=== PATIENT | female | born 1985 | race Hispanic/Latino ===

== ENCOUNTER 2016-03-04 08:06 | Emergency (ER) | payer SELFPAY ==
[2016-03-04] MEDS ORDERED: Ondansetron HCl/PF 4 MG/2 ML Vial ONE ×2 (08:36→09:11)
[2016-03-04] MEDS ORDERED: Ketorolac Tromethamine 30 MG/ML VIAL ONE (08:36)
[2016-03-04 08:41] LABS: #Basophils 0.1 thou/uL (0.0-0.2); #Eosinphils 0.1 thou/uL (0.0-0.7); #Lymphocytes 2.6 thou/uL (1.20-3.40); #Monocytes 0.6 thou/uL (0.11-0.59); #Neutrophils 8.9 thou/uL (1.40-6.50); %Eosinophils 0.8 % (0.0-10.0); %Monocytes 4.7 % (0.0-10.0); Hematocrit 40.3 % (36.0-47.0); Mean Platelet Volume 6.2 fL (7.4-10.4); Red Blood Cell (RBC) Count 4.27 mill/uL (4.20-5.40); White Blood Cell (WBC) Count 12.3 thou/uL (4.8-10.8)
[2016-03-04 08:53] LABS: ALT (SGPT) 21 U/L (0-55); AST (SGOT) 12 U/L (5-34); Alkaline Phosphatase 107 U/L (40-150); Anion Gap 11 mmol/L (10-20); BUN (Urea Nitrogen) 16 mg/dL (7.0-18.7); Bilirubin, Total 0.2 mg/dL (0.2-1.2); Calc. Creatinine Clearance 0 mL/min (70-130); Carbon Dioxide 22 mmol/L (22-29); Chloride 108 mmol/L (98-107); Estimated GFR-MDRD 90; Globulin 3.4 g/dL (2.4-3.5); Protein, Total 7.5 g/dL (6.0-8.3)
[2016-03-04] MEDS ORDERED: Piperacillin/Tazobactam 3.375 GM VIAL ONE (09:07)
[2016-03-04] MEDS ORDERED: Sodium Chloride 0.9% 100 ML ONE (09:07)
[2016-03-04 09:23] LABS: Bilirubin Negative (Negative); Blood, Urine Small (Negative); Glucose, Urine (Dipstick) Negative (Negative); Ketone, Urine Negative (Negative); Nitrite Negative (Negative); Protein, Urine (Dipstick) Trace mg/dL (Neg-Trace); Urobilinogen 0.2 mg/dL (0.2-1.0)
[2016-03-04 09:24] LABS: Bacteria/HPF 1+ HPF (None Seen); RBC/HPF 0-3 HPF (0-3)
--- NOTE | 2016-03-04 09:55 | ERRECORD ---
[facility] EMERGENCY RECORD HPI ABDOMINAL PAIN (08:34 WMEI) CHIEF COMPLAINTS: Patient presents for evaluation of abdominal pain. HISTORIAN: History provided by patient, AWAKENED FROM SLEEP THIS AM WITH RUQ PAIN NAUSEA HAS HAD PREVIOUS SYMPTOMS BUT NOT BAS NEVER DX WITH GB DZ. LOCATION FEMALE: Symptoms are localized, most severe in the right upper quadrant, Radiation, to the back, SUBSCAPULAR. QUALITY: Described as similar to previous episodes. TIME COURSE: Sudden onset of symptoms. ASSOCIATED WITH FEMALE: Associated with nausea, No associated urinary tract infection signs or symptoms. RELIEVED BY: Patient's condition relieved by nothing. EXACERBATED BY: Patient's condition exacerbated by nothing. ROS (08:37 WMEI) CONSTITUTIONAL: Historian denies chills, denies fever. EYES: Historian denies eye pain, denies eye discharge. ENT: Historian denies otalgia, denies rhinorrhea, denies sore throat. CARDIOVASCULAR: Historian denies chest pain, no radiation. RESPIRATORY: Historian denies cough, denies shortness of breath. GI: Historian reports abdominal pain, denies diarrhea, reports nausea, denies vomiting. GENITOURINARY FEMALE: Historian denies dysuria, denies urgency. MUSCULOSKELETAL: Historian denies arthralgias, denies joint swelling. SKIN: Historian denies skin changes, denies skin lesions. NEUROLOGIC: Historian denies confusion, denies mental status changes. PSYCHIATRIC: Historian denies alcohol abuse, denies drug abuse. PAST MEDICAL HISTORY (08:17 SDIS) MEDICAL HISTORY: No past medical history, Flu vaccine not up to date, Tetanus not up to date. FEMALE SURGICAL HISTORY: Surgical history of tonsillectomy, Surgical history of tubal ligation. PSYCHIATRIC HISTORY: Psychiatric history includes, anxiety, depression. SOCIAL HISTORY: Patient denies alcohol use, Patient denies drug use, Patient has no smoking history. KNOWN ALLERGIES codeine phosphate CURRENT MEDICATIONS (08:16 SDIS) None VITAL SIGNS VITAL SIGNS: Resp: 18 (Non-Labored), Time: 03/04/2016 08:12. &a-1R&a+25V*p+0X*f0302A*c202B*c15G*c2P*p-0X&a-25V&a+1R Name: Domenica Velasco : 1985 F31 MedRec: [id number] AcctNum: [id number] Prepared: MonMar 04, 2016 09:53 by Interface Page 1 of 3 pMD [facility] EMERGENCY RECORD (08:12 SDIS) BP: 152/100, Pulse: 97, Temp: 97.7 (Oral), Pain: 8, O2 sat: 100 on Room Air, Time: 03/04/2016 08:16. (08:16 SDIS) BP: 145/94, Pulse: 83, O2 sat: 99 on Room Air, Time: 03/04/2016 08:35. (08:35 SDIS) BP: 129/83, Pulse: 83, Resp: 18, Temp: 98.2 (Oral), Pain: 2, O2 sat: 100 on Room Air, Time: 03/04/2016 09:28. (09:28 SDIS) PHYSICAL EXAM CONSTITUTIONAL: Vital Signs Reviewed, Patient appears, Patient alert and oriented to person, place and time. (08:38 WMEI) Vital Signs Reviewed, Patient afebrile, Pulse normal, Blood pressure, hypertensive, Respiratory rate normal, Patient appears non toxic, Patient appears, in mild pain distress, Patient alert and oriented to person, place and time, Nursing notes reviewed. (08:55 MBRI) HEAD: Head exam included findings of head atraumatic, normocephalic. (08:38 WMEI) EYES: Conjunctiva normal, Sclera normal. (08:38 WMEI) ENT: Ear exam normal, Nose exam normal, Pharynx exam normal. (08:38 WMEI) NECK: Neck exam included findings of normal range of motion, Trachea midline. (08:38 WMEI) RESPIRATORY CHEST: Breath sounds clear, Chest exam included findings of chest movement symmetrical. (08:38 WMEI) CARDIOVASCULAR: Cardiovascular exam included findings of heart rate regular rate and rhythm, Heart sounds normal. (08:38 WMEI) ABDOMEN FEMALE: Abdominal exam included findings of abdomen tender, to the right upper quadrant, mild intensity, no distension, no mass. (08:38 WMEI) BACK: Back exam included findings of normal inspection, range of motion normal, no tenderness, Costovertebral angle tenderness, on the right. (08:38 WMEI) UPPER EXTREMITY: Upper extremity exam included findings of inspection normal, Range of motion normal, Motor strength normal. (08:38 WMEI) LOWER EXTREMITY: Lower extremity exam included findings of inspection normal, Range of motion normal, Motor strength normal. (08:38 WMEI) NEURO: Lalitha coma scale 15, Neuro exam findings include patient oriented to person, place and time, Speech normal, Gait normal. (08:38 WMEI) SKIN: Skin exam included findings of skin warm, dry, and normal in color. (08:38 WMEI) LYMPHATIC: Lymphatic exam normal. (08:38 WMEI) PSYCHIATRIC: Psychiatric exam included findings of patient oriented to person place and time, Normal affect, Judgment normal, Insight normal. (08:38 WMEI) MEDICATION ADMINISTRATION SUMMARY &a-1R&a+25V*p+0X*[id number]*c202B*c15G*c2P*p-0X&a-25V&a+1R Name: Domenica Velasco : 1985 F31 MedRec: [id number] AcctNum: [id number] Prepared: MonMar 04, 2016 09:53 by Interface Page 2 of 3 pMD [facility] EMERGENCY RECORD Drug Name: Zosyn, Dose Ordered: 3.375 g, Route: IV Piggy Back, Status: Given, Time: 09:21 03/04/2016, Drug Name: ondansetron HCl intravenous, Dose Ordered: 4 mg, Route: IV Push, Status: Given, Time: 09:19 03/04/2016, Drug Name: sodium chloride 0.9 % intravenous, Dose Ordered: 1 L, Route: IV Fluid Infusion, Status: Given, Time: 09:18 03/04/2016, Drug Name: ketorolac injection, Dose Ordered: 30 mg, Route: IV Push, Status: Given, Time: 08:40 03/04/2016, Drug Name: ondansetron HCl intravenous, Dose Ordered: 4 mg, Route: IV Push, Status: Given, Time: 08:38 03/04/2016, Detailed record available in Medication Service section. DOCTOR NOTES RE-EVALUATION: Routine re-evaluation, after administration of analgesics, The patient's condition has improved, discussed with Dr Espino, accepted for further care. Pt stable for ground EMS. Abx given and pt has remained NPO. (09:19 MBRI) PATIENT PLAN: The patient requires a transfer and will be transferred, per physician request, due to availability of specialty care, Transfer form completed, Certificate completed. (09:18 MBRI) PROBLEM LIST No recorded problems DIAGNOSIS (09:22 MBRI) FINAL: PRIMARY: ACUTE CHOLECYSTITIS. PRESCRIPTION No recorded prescriptions DISPOSITION PATIENT: Disposition Type: Transfer, Disposition: Transfer to [facility], Condition: Fair. (09:22 MBRI) Patient left the department. (09:50 SDIS) Smith: MBRI=DO Jean Matthew SDIS=DANITA Gipson, Lakshmi WMEI=DO Awan William &a-1R&a+25V*p+0X*[id number]*c202B*c15G*c2P*p-0X&a-25V&a+1R Name: Rod Domenica Meeta : 1985 F31 MedRec: [id number] AcctNum: [id number] Prepared: MonMar 04, 2016 09:53 by Interface Page 3 of 3 pMD MTDD
--- NOTE | 2016-03-04 10:02 | PICIS ---
[facility] EMERGENCY RECORD TRIAGE (08:12 SDIS) TRIAGE NOTES: SINCE 329. REPORTS PAIN "FROM UP UNDER RIBS, RADIATING TO BACK." REPORTS + N/V. (08:12 SDIS) PATIENT: NAME: Domenica Velasco, AGE: 31, GENDER: female, : Mon1985, TIME OF GREET: MonMar 04, 2016 08:07, PREFERRED LANGUAGE: Macedonian, ETHNICITY: or , ECODE BILLING MAP: [facility], SSN: [id number], Zip Code: [address], KG WEIGHT: 61.23 (est.), PHONE: , , , PERSON ID: [id number], PAYMENT: SJX Self Pay, PCP: Jeane James, /Rufina. (08:12 SDIS) COMPLAINT: R FLANK PAIN. (08:12 SDIS) ADMISSION: URGENCY: 3 Urgent, ADMISSION SOURCE: Home, TRANSPORT: Walk-in, BED: ER -02. (08:12 SDIS) SIRS SCORING: Heart Rate 55-109 (0), Temp range 96.8-101.1 (0), respiratory rate 12-24 (0), Mental Status altered: no (0). (08:17 SDIS) TRIAGE SCREENING: Patient denies suicidal ideation, Patient denies presence of domestic violence. (08:17 SDIS) LMP: Last menstrual period: 02/09/2016. (08:17 SDIS) TREATMENTS IN PROGRESS: Treatments given Prehospital: NONE. (08:17 SDIS) PROVIDERS: TRIAGE NURSE: Lakshmi Gipson RN. (08:12 SDIS) VITAL SIGNS: Resp 18, (Non-Labored), Time 03/04/2016 08:12. (08:12 SDIS) BP 152/100, Pulse 97, Temp 97.7, (Oral), Pain 8, O2 Sat 100, on Room Air, Time 03/04/2016 08:16. (08:16 SDIS) PREVIOUS VISIT ALLERGIES: No Known Drug Allergies. (08:12 SDIS) No Known Drug Allergies. (08:17 SDIS) KNOWN ALLERGIES codeine phosphate CURRENT MEDICATIONS (08:16 SDIS) None VITAL SIGNS VITAL SIGNS: Resp: 18 (Non-Labored), Time: 03/04/2016 08:12. (08:12 SDIS) BP: 152/100, Pulse: 97, Temp: 97.7 (Oral), Pain: 8, O2 sat: 100 on Room Air, Time: 03/04/2016 08:16. (08:16 SDIS) BP: 145/94, Pulse: 83, O2 sat: 99 on Room Air, Time: 03/04/2016 08:35. (08:35 SDIS) BP: 129/83, Pulse: 83, Resp: 18, Temp: 98.2 (Oral), Pain: 2, O2 sat: 100 on Room Air, Time: 03/04/2016 09:28. (09:28 SDIS) NURSING ASSESSMENT: ABDOMEN (08:31 SDIS) CONSTITUTIONAL: Patient arrives ambulatory, Gait steady, History obtained from patient, Patient appears, uncomfortable, Patient cooperative, Patient alert, Oriented to person, place and time, Skin warm, Skin dry, Skin normal in color, Mucous membranes &a-1R&a+25V*p+0X*t3628U*c202B*c15G*c2P*p-0X&a-25V&a+1R Name: Domenica Velasco : 1985 F31 MedRec: [id number] AcctNum: [id number] Prepared: MonMar 04, 2016 09:59 by Interface Page 1 of 11 pMD [facility] EMERGENCY RECORD pink, Mucous membranes moist, Patient complains of R FLANK/RUQ PAIN, ONSET 0330, WOKE HER UP FROM HER SLEEP. REPORTS H/O SIMILAR EPISODES. REPORTS + N/V. DENIES DYSURIA OR HEMATURIA. WORSE WITH MOVEMENT/LIFTING, PT REPORTS. + GARCIA'S SIGN, + CVA TENDERNESS. PAIN: to the right upper quadrant, to the right flank, TO R MIDDLE BACK, on a scale 0-10 patient rates pain as 8. ABDOMEN: Abdomen assessment findings include abdomen symmetrical, Abdomen soft, tender, to the right upper quadrant, to the right flank, Associated with nausea, Associated with vomiting, history of vomiting. LMP: First day last menstrual period, Last period started on 02/09/2016 08:33. GENITOURINARY FEMALE: no associated urinary complaints. NURSING ASSESSMENT: FALL RISK (08:48 SDIS) FALL RISK: Fall risk assessment findings include: no history of falls (0), No bed rest greater than 2 days (0), No use of level of consciousness altering agents with mentation or cognitive changes (0), No change in blood pressure (0), No sensory deficits (0), No impaired mobility (0), No neurologic diagnosis (0), No elimination problems (0), No confusion (0), Total score 0, No risk for fall. NURSING ASSESSMENT: SKIN (09:23 SDIS) SKIN: Skin assessment findings include skin warm, Skin dry, Skin normal in color, Notes: SKIN CDI. NURSING PROCEDURE: BEDSIDE SIRS TESTING (08:57 SDIS) SCORES: Heart Rate 55-109 (0), Temp range 96.8-101.1 (0), respiratory rate 12-24 (0), Latest WBC 3-14.9 (0), Mental Status altered: no (0), Total SIRS Score 0. NURSING PROCEDURE: IV (08:15 SDIS) IV SITE 1: IV established, to the left antecubital, using an 18 gauge catheter, in one attempt, IV site prepped with CHLOROPREP, Saline lock established, Labs drawn at time of placement, labeled in the presence of the patient and sent to lab. SAFETY: Side rails up, Cart/Stretcher in lowest position, Call light within reach, Hospital ID band on. NURSING PROCEDURE: TRANSFER (09:29 SDIS) TRANSFER: Reason for transfer need for specialized care, Diagnosis: CHOLECYSTITIS, Accepting institution: [facility], Accepting physician: ELICIA, Referring physician: MARIO, Transported by urgent ambulance, accompanied by emergency medical services personnel, Report called to receiving facility, [facility], Provided opportunity to answer questions, Bed assigned ER-ER, Copy of patient record prepared for receiving facility, Status of patient's &a-1R&a+25V*p+0X*o2905B*c202B*c15G*c2P*p-0X&a-25V&a+1R Name: Domenica Velasco : 1985 F31 MedRec: [id number] AcctNum: [id number] Prepared: MonMar 04, 2016 09:59 by Interface Page 2 of 11 D [facility] EMERGENCY RECORD valuables documented on chart, Patient consent for transfer signed. BELONGINGS: Belongings and valuables with patient at time of admission include:, Belongings remain with patient, Valuables remain with patient. NURSING PROCEDURE: URINE COLLECTION (08:12 SDIS) URINE COLLECTION FEMALE: Urine collected by mid-stream clean catch, urine yellow in color, and clear, Specimen labeled in the presence of the patient and sent to lab. SAFETY: Side rails up, Cart/Stretcher in lowest position, Family at bedside, Call light within reach, Hospital ID band on. ORDER DETAILS Order Name: CBC with Differential, Status: Active, Time: 08:18 03/04/2016, User: MINGOIS, - Ordered for: JessaoJackie, - Entered by: DANITA Gipson, Lakshmi - [facility] Mar 04, 2016 08:18, - Quantity: 1, Order Name: CBC with Differential, Status: Active, Time: 08:32 03/04/2016, User: DANA, - Ordered for: DO Awan William, - Entered by: DO Awan William - [facility] Mar 04, 2016 08:32, - Quantity: 1, Order Name: Comprehensive Metabolic Panel, Status: Active, Time: 08:18 03/04/2016, User: CHRIS, - Ordered for: Jackie Gary, - Entered by: DANITA Gipson [facility] - [facility] Mar 04, 2016 08:18, - Quantity: 1, Order Name: Comprehensive Metabolic Panel, Status: Active, Time: 08:32 03/04/2016, User: EI, - Ordered for: DO Awan William, - Entered by: DO Awan William - [facility] Mar 04, 2016 08:32, - Quantity: 1, Order Name: Lipase, Status: Active, Time: 08:18 03/04/2016, User: MINGOIS, - Ordered for: Jackie Gary, - Entered by: DANITA Gipson Lakshmi - [facility] Mar 04, 2016 08:18, - Quantity: 1, Order Name: Test, Urine (BHCG), Status: Active, Time: 09:11 03/04/2016, User: CHRIS, - Ordered for: DO Awan William, - Entered by: DANITA Gipson, Lakshmi - MonMar 04, 2016 09:11, - Quantity: 1, Order Name: Test, Urine (BHCG), Status: Canceled, Time: 08:33 03/04/2016, User: CHRIS, - Ordered for: DO Awan William, - Entered by: DO Awan William - MonMar 04, 2016 08:32, - Quantity: 1, Order Name: Test, Urine (BHCG), Status: Active, Time: 08:18 &a-1R&a+25V*p+0X*t3584P*c202B*c15G*c2P*p-0X&a-25V&a+1R Name: Domenica Velasco : 1985 F31 MedRec: [id number] AcctNum: [id number] Prepared: MonMar 04, 2016 09:59 by Interface Page [address] [facility] EMERGENCY RECORD 03/04/2016, User: CHRIS, - Ordered for: Ersmdo, ., - Entered by: DANITA Gipson, Lakshmi - MonMar 04, 2016 08:18, - Quantity: 1, Order Name: SALINE LOCK, Status: Done, Time: 08:26 03/04/2016, User: CHRIS, - Ordered for: Ersmdo, ., - Entered by: DANITA Gipson, Lakshmi - MonMar 04, 2016 08:18, - Quantity: 1, Order Name: SALINE LOCK, Status: Canceled, Time: 08:33 03/04/2016, User: CHRIS, - Ordered for: DO Awan William, - Entered by: DO Awan William - MonMar 04, 2016 08:32, - Quantity: 1, Order Name: Urinalysis w/ Rflx Microscopic, Status: Canceled, Time: 08:33 03/04/2016, User: CHRIS, - Ordered for: DO Awan William, - Entered by: DO Awan William - MonMar 04, 2016 08:32, - Quantity: 1, Order Name: Urinalysis w/ Rflx Microscopic, Status: Active, Time: 08:18 03/04/2016, User: [employer], - Ordered for: Abdirahman, ., - Entered by: DANITA Gipson, Lakshmi - MonMar 04, 2016 08:18, - Quantity: 1, Order Name: Urinalysis w/ Rflx Microscopic, Status: Active, Time: 09:11 03/04/2016, User: CHRIS, - Ordered for: DO Awan William, - Entered by: DANITA Gipson, Lakshmi - MonMar 04, 2016 09:11, - Quantity: 1. MEDICATION ADMINISTRATION SUMMARY Drug Name: Zosyn, Dose Ordered: 3.375 g, Route: IV Piggy Back, Status: Given, Time: 09:21 03/04/2016, Drug Name: ondansetron HCl intravenous, Dose Ordered: 4 mg, Route: IV Push, Status: Given, Time: 09:19 03/04/2016, Drug Name: sodium chloride 0.9 % intravenous, Dose Ordered: 1 L, Route: IV Fluid Infusion, Status: Given, Time: 09:18 03/04/2016, Drug Name: ketorolac injection, Dose Ordered: 30 mg, Route: IV Push, Status: Given, Time: 08:40 03/04/2016, Drug Name: ondansetron HCl intravenous, Dose Ordered: 4 mg, Route: IV Push, Status: Given, Time: 08:38 03/04/2016, Detailed record available in Medication Service section. MEDICATION SERVICE ketorolac injection: Order: ketorolac injection (ketorolac tromethamine) - Dose: 30 mg : IV Push Ordered by: Ramiro Awan DO Entered by: Ramiro Awan DO MonMar 04, 2016 08:33 , Acknowledged by: Lakshmi Gipson RN MonMar 04, 2016 08:33 &a-1R&a+25V*p+0X*v4240B*c202B*c15G*c2P*p-0X&a-25V&a+1R Name: Domenica Velasco : 1985 F31 MedRec: [id number] AcctNum: [id number] Prepared: MonMar 04, 2016 09:59 by Interface Page [address] [facility] EMERGENCY RECORD Documented as given by: Lakshmi Gipson RN MonMar 04, 2016 08:40 Patient, Medication, Dose, Route and Time verified prior to administration. IV SITE #1 IVP, subsequent different medication, Slowly, Catheter placement confirmed via flush prior to administration, IV site without signs or symptoms of infiltration during medication administration, No swelling during administration, No drainage during administration, IV flushed after administration, Correct patient, time, route, dose and medication confirmed prior to administration, Patient advised of actions and side-effects prior to administration, Allergies confirmed and medications reviewed prior to administration. : Follow Up : Decreased pain, _IV SITE #1:_. (09:36 LGIB) ondansetron HCl intravenous: Order: ondansetron HCl intravenous (ondansetron HCl) - Dose: 4 mg : IV Push Ordered by: Ramiro Awan DO Entered by: Ramiro Awan DO MonMar 04, 2016 08:34 , Acknowledged by: Lakshmi Gipson RN MonMar 04, 2016 08:35 Documented as given by: Lakshmi Gipson RN MonMar 04, 2016 08:38 Patient, Medication, Dose, Route and Time verified prior to administration. IV SITE #1 IVP, initial medication, Slowly, Catheter placement confirmed via flush prior to administration, IV site without signs or symptoms of infiltration during medication administration, No swelling during administration, No drainage during administration, IV flushed after administration, Correct patient, time, route, dose and medication confirmed prior to administration, Patient advised of actions and side-effects prior to administration, Allergies confirmed and medications reviewed prior to administration. ondansetron HCl intravenous: Order: ondansetron HCl intravenous (ondansetron HCl) - Dose: 4 mg : IV Push Ordered by: Jd Jean DO Entered by: Jd Jean DO MonMar 04, 2016 09:08 , Acknowledged by: Lakshmi Gipson RN MonMar 04, 2016 09:09 Documented as given by: Consuelo Arvizu RN MonMar 04, 2016 09:19 Patient, Medication, Dose, Route and Time verified prior to administration. IV SITE #1 IVP, initial medication, Slowly, Catheter placement confirmed via flush prior to administration, IV site without signs or symptoms of infiltration during medication administration, No swelling during administration, No drainage during administration, IV flushed after administration, Correct patient, time, route, dose and medication confirmed prior to administration, Patient advised of actions and side-effects prior to administration, Allergies confirmed and medications reviewed prior to administration, Patient in position of comfort, Side rails up, Cart in lowest position. sodium chloride 0.9 % intravenous: Order: sodium chloride 0.9 % intravenous (0.9 % sodium chloride) - Dose: 1 L : IV Fluid Infusion Ordered by: Jd Jean DO &a-1R&a+25V*p+0X*r0339D*c202B*c15G*c2P*p-0X&a-25V&a+1R Name: Domenica Velasco : 1985 F31 MedRec: [id number] AcctNum: [id number] Prepared: MonMar 04, 2016 09:59 by Interface Page 5 of 11 pMD [facility] EMERGENCY RECORD Entered by: Jd Jean DO MonMar 04, 2016 09:08 , Acknowledged by: Lakshmi Gipson RN MonMar 04, 2016 09:09 Documented as given by: Consuelo Arvizu RN MonMar 04, 2016 09:18 Patient, Medication, Dose, Route and Time verified prior to administration. IV SITE #1 IV fluids established for hydration, IV SITE #1 into right antecubital, IV SITE #1 1st bag hung, amount 1 Liter hung, via primary tubing, Catheter placement confirmed via flush prior to administration, IV site without signs or symptoms of infiltration during medication administration, No swelling during administration, No drainage during administration, IV flushed after administration, Correct patient, time, route, dose and medication confirmed prior to administration, Patient advised of actions and side-effects prior to administration, Allergies confirmed and medications reviewed prior to administration, Patient in position of comfort, Side rails up, Cart in lowest position, Family at bedside. : Follow Up : No signs or symptoms of allergic reaction noted, _IV SITE #1:_, IV fluid infusion continued upon transfer from emergency department, on MonMar 04, 2016 09:50, 35 minutes, ., Total amount infused: 500MLS. (09:50 SDIS) Zosyn: Order: Zosyn (piperacillin sodium/tazobactam sodium) - Dose: 3.375 g : IV Piggy Back Schedule: Now Ordered by: Jd Jean DO Entered by: Jd Jean DO MonMar 04, 2016 09:06 , Acknowledged by: Consuelo Arvizu RN MonMar 04, 2016 09:06 Documented as given by: Consuelo Arvizu RN MonMar 04, 2016 09:21 Patient, Medication, Dose, Route and Time verified prior to administration. IV SITE #1 IVPB or drip, initial infusion, IVPB mixed in: 100ml, Fluid: 0.9NS, via primary tubing, on an IV pump, at 200 ml/hr, Catheter placement confirmed via flush prior to administration, IV site without signs or symptoms of infiltration during medication administration, No swelling during administration, No drainage during administration, IV flushed after administration, Correct patient, time, route, dose and medication confirmed prior to administration, Patient advised of actions and side-effects prior to administration, Allergies confirmed and medications reviewed prior to administration, Patient in position of comfort, Side rails up, Cart in lowest position. : Follow Up : No signs or symptoms of allergic reaction noted, _IV SITE #1:_, Medication infusion discontinued, on MonMar 04, 2016 09:50, 30 minutes, ., Total amount infused: 100MLS, IV Line flushed after administration. (09:50 SDIS) HPI ABDOMINAL PAIN (08:34 WMEI) CHIEF COMPLAINTS: Patient presents for evaluation of abdominal pain. HISTORIAN: History provided by patient, AWAKENED FROM SLEEP THIS AM WITH RUQ PAIN NAUSEA HAS HAD PREVIOUS SYMPTOMS BUT NOT BAS NEVER DX WITH GB DZ. &a-1R&a+25V*p+0X*p0635F*c202B*c15G*c2P*p-0X&a-25V&a+1R Name: Domenica Velasco : 1985 F31 MedRec: [id number] AcctNum: [id number] Prepared: MonMar 04, 2016 09:59 by Interface Page 6 of 11 pMD [facility] EMERGENCY RECORD LOCATION FEMALE: Symptoms are localized, most severe in the right upper quadrant, Radiation, to the back, SUBSCAPULAR. QUALITY: Described as similar to previous episodes. TIME COURSE: Sudden onset of symptoms. ASSOCIATED WITH FEMALE: Associated with nausea, No associated urinary tract infection signs or symptoms. RELIEVED BY: Patient's condition relieved by nothing. EXACERBATED BY: Patient's condition exacerbated by nothing. ROS (08:37 WMEI) CONSTITUTIONAL: Historian denies chills, denies fever. EYES: Historian denies eye pain, denies eye discharge. ENT: Historian denies otalgia, denies rhinorrhea, denies sore throat. CARDIOVASCULAR: Historian denies chest pain, no radiation. RESPIRATORY: Historian denies cough, denies shortness of breath. GI: Historian reports abdominal pain, denies diarrhea, reports nausea, denies vomiting. GENITOURINARY FEMALE: Historian denies dysuria, denies urgency. MUSCULOSKELETAL: Historian denies arthralgias, denies joint swelling. SKIN: Historian denies skin changes, denies skin lesions. NEUROLOGIC: Historian denies confusion, denies mental status changes. PSYCHIATRIC: Historian denies alcohol abuse, denies drug abuse. PAST MEDICAL HISTORY (08:17 SDIS) MEDICAL HISTORY: No past medical history, Flu vaccine not up to date, Tetanus not up to date. FEMALE SURGICAL HISTORY: Surgical history of tonsillectomy, Surgical history of tubal ligation. PSYCHIATRIC HISTORY: Psychiatric history includes, anxiety, depression. SOCIAL HISTORY: Patient denies alcohol use, Patient denies drug use, Patient has no smoking history. PHYSICAL EXAM CONSTITUTIONAL: Vital Signs Reviewed, Patient appears, Patient alert and oriented to person, place and time. (08:38 WMEI) Vital Signs Reviewed, Patient afebrile, Pulse normal, Blood pressure, hypertensive, Respiratory rate normal, Patient appears non toxic, Patient appears, in mild pain distress, Patient alert and oriented to person, place and time, Nursing notes reviewed. (08:55 MBRI) HEAD: Head exam included findings of head atraumatic, normocephalic. (08:38 WMEI) EYES: Conjunctiva normal, Sclera normal. (08:38 WMEI) ENT: Ear exam normal, Nose exam normal, Pharynx exam normal. (08:38 WMEI) &a-1R&a+25V*p+0X*q0072O*c202B*c15G*c2P*p-0X&a-25V&a+1R Name: Domenica Velasco : 1985 F31 MedRec: [id number] AcctNum: [id number] Prepared: MonMar 04, 2016 09:59 by Interface Page 7 of 11 pMD [facility] EMERGENCY RECORD NECK: Neck exam included findings of normal range of motion, Trachea midline. (08:38 WMEI) RESPIRATORY CHEST: Breath sounds clear, Chest exam included findings of chest movement symmetrical. (08:38 WMEI) CARDIOVASCULAR: Cardiovascular exam included findings of heart rate regular rate and rhythm, Heart sounds normal. (08:38 WMEI) ABDOMEN FEMALE: Abdominal exam included findings of abdomen tender, to the right upper quadrant, mild intensity, no distension, no mass. (08:38 WMEI) BACK: Back exam included findings of normal inspection, range of motion normal, no tenderness, Costovertebral angle tenderness, on the right. (08:38 WMEI) UPPER EXTREMITY: Upper extremity exam included findings of inspection normal, Range of motion normal, Motor strength normal. (08:38 WMEI) LOWER EXTREMITY: Lower extremity exam included findings of inspection normal, Range of motion normal, Motor strength normal. (08:38 WMEI) NEURO: Lalitha coma scale 15, Neuro exam findings include patient oriented to person, place and time, Speech normal, Gait normal. (08:38 WMEI) SKIN: Skin exam included findings of skin warm, dry, and normal in color. (08:38 WMEI) LYMPHATIC: Lymphatic exam normal. (08:38 WMEI) PSYCHIATRIC: Psychiatric exam included findings of patient oriented to person place and time, Normal affect, Judgment normal, Insight normal. (08:38 WMEI) LAB INTERPRETATION (09:18 MBRI) INTERPRETATION: I reviewed the lab results. EVENTS TRANSFER: Triage to Emergency Emergency Room -02. (MonMar 04, 2016 08:12 SDIS) Removed from Emergency Emergency Room -02. (09:50 SDIS) O2SAT INTERPRETATION (08:55 MBRI) O2SAT: Oxygen saturation interpretation: Normal. DOCTOR NOTES RE-EVALUATION: Routine re-evaluation, after administration of analgesics, The patient's condition has improved, discussed with Dr Espino, accepted for further care. Pt stable for ground EMS. Abx given and pt has remained NPO. (09:19 MBRI) PATIENT PLAN: The patient requires a transfer and will be transferred, per physician request, due to availability of specialty care, Transfer form completed, Certificate completed. (09:18 MBRI) PROBLEM LIST No recorded problems &a-1R&a+25V*p+0X*j7031B*c202B*c15G*c2P*p-0X&a-25V&a+1R Name: Domenica Velasco : 1985 F31 MedRec: [id number] AcctNum: [id number] Prepared: MonMar 04, 2016 09:59 by Interface Page 8 of 11 pMD [facility] EMERGENCY RECORD DIAGNOSIS (09:22 MBRI) FINAL: PRIMARY: ACUTE CHOLECYSTITIS. DISPOSITION PATIENT: Disposition Type: Transfer, Disposition: Transfer to [facility], Condition: Fair. (09:22 MBRI) Patient left the department. (09:50 SDIS) PRESCRIPTION No recorded prescriptions IMAGING CONSENTS: Image captured from scanner. (09:21 LGIB) *MEMORANDUM OF TRANSFER: Image captured from scanner. (09:21 LGIB) PHYSICIAN CERTIFICATION STATEMENT: Image captured from scanner. (09:22 LGIB) RESULTS LABORATORY: CBC with Differential Collection DT: MonMar 04, 2016 08:54, *White Blood Cell (WBC) Count 12.3 - H thou/uL, Range (4.8-10.8), Red Blood Cell (RBC) Count 4.27 mill/uL, Range (4.20-5.40), Hemoglobin 12.4 g/dL, Range (12.0-16.0), Hematocrit 40.3 %, Range (36.0-47.0), Mean Corpuscular Volume 94.4 fl, Range (81.0-99.0), Mean Corpuscular Hemoglobin 29.0 pg, Range (27.0-31.0), *Mean Corpuscular HGB CONC 30.7 - L g/dL, Range (32.0-36.0), *RBC Distribution Width 15.0 - H %, Range (11.5-14.5), *Platelet Count 423 - H thou/uL, Range (130-400), *Mean Platelet Volume 6.2 - L fL, Range (7.4-10.4), %Neutrophils 72.5 %, Range (42.0-75.0), %Lymphocytes 21.1 %, Range (21.0-51.0), %Monocytes 4.7 %, Range (0.0-10.0), %Eosinophils 0.8 %, Range (0.0-10.0), %Basophils 1.0 %, Range (0.0-1.0), *#Neutrophils 8.9 - H thou/uL, Range (1.40-6.50), #Lymphocytes 2.6 thou/uL, Range (1.20-3.40), *#Monocytes 0.6 - H thou/uL, Range (0.11-0.59), #Eosinphils 0.1 thou/uL, Range (0.0-0.7), #Basophils 0.1 thou/uL, Range (0.0-0.2). (08:57 [facility] Comprehensive Metabolic Panel Collection DT: MonMar 04, 2016 08:40, Sodium 137 mmol/L, Range (136-145), Potassium 3.7 mmol/L, Range (3.5-5.1), *Chloride 108 - H mmol/L, Range (98-107), Carbon Dioxide 22 mmol/L, Range (22-29), Anion Gap 11 mmol/L, Range (10-20), &a-1R&a+25V*p+0X*t3771F*c202B*c15G*c2P*p-0X&a-25V&a+1R Name: Domenica Velasco : 1985 F31 MedRec: [id number] AcctNum: [id number] Prepared: MonMar 04, 2016 09:59 by Interface Page 9 of 11 pMD [facility] EMERGENCY RECORD BUN (Urea Nitrogen) 16 mg/dL, Range (7.0-18.7), Creatinine 0.75 mg/dL, Range (0.6-1.1), Estimated GFR-MDRD 90 , Reference Range for Estimated GFR: Greater than 90, mL/min/1.73 m2 NOTE: The MDRD equation has not been validated for use, with the elderly (over 70 years of age), women, patients with, serious comorbid condition or persons with extremes of body size, muscle, mass, or nutritional status. , *Glucose 143 - H mg/dL, Range (70-105), Calcium 9.0 mg/dL, Range (7.8-10.44), Bilirubin, Total 0.2 mg/dL, Range (0.2-1.2), Protein, Total 7.5 g/dL, Range (6.0-8.3), NOTE: Plasma values are generally 0.3 to 0.5 g/dL higher than serum values, due to the presence of fibrinogen. , Albumin 4.1 g/dL, Range (3.5-5.0), Globulin 3.4 g/dL, Range (2.4-3.5), Alb/Glob Ratio 1.2 g/dL, Range (1.2-2.2), Alkaline Phosphatase 107 U/L, Range (40-150), AST (SGOT) 12 U/L, Range (5-34), ALT (SGPT) 21 U/L, Range (0-55). (08:57 MBRI) Urine Microscopic Collection DT: MonMar 04, 2016 09:23, RBC/HPF 0-3 HPF, Range (0-3), *WBC/HPF 7-10 - H HPF, Range (0-3), *Squamous Epithelial 4-6 - H HPF, Range (0-3), *Bacteria/HPF 1+ - H HPF, Range (None Seen). (09:26 SDIS) Urinalysis w/ Rflx Microscopic Collection DT: MonMar 04, 2016 09:23, Color Yellow , Range (Yellow), Clarity Cloudy , Range (Clear), Specific [place], Urine 1.025 , Range (1.005-1.030), pH, Urine 5.5 , Range (5.0-9.0), *Leukocyte Trace - H , Range (Negative), Nitrite Negative , Range (Negative), Protein, Urine (Dipstick) Trace mg/dL, Range (Neg-Trace), Glucose, Urine (Dipstick) Negative mg/dL, Range (Negative), Ketone, Urine Negative mg/dL, Range (Negative), Urobilinogen 0.2 mg/dL, Range (0.2-1.0), Bilirubin Negative , Range (Negative), *Blood, Urine Small - H , Range (Negative). (09:26 SDIS) Test, Urine (BHCG) Collection DT: MonMar 04, 2016 09:25, Test - Urine (BHCG) NEGATIVE , Range (NEGATIVE), Method of sensitivity- Indeterminant: results should be repeated, after 48 hours. Positive: results may be detected as early as 4-5 days before a first missed menses. Elimination of BHCG-, &a-1R&a+25V*p+0X*r0001J*c202B*c15G*c2P*p-0X&a-25V&a+1R Name: Domenica Velasco : 1985 F31 MedRec: [id number] AcctNum: [id number] Prepared: MonMar 04, 2016 09:59 by Interface Page 10 of 11 pMD [facility] EMERGENCY RECORD Elimination following first trimester D&C: 29-44 Days , Elimination following term : 8-24 Days , Specific Arpin 1.025 , Range (1.002-1.036), A dilute urine specimen may, not contain office machines sales representative levels of hCG. If is still, suspected, a first morning urine specimen OR a random blood specimen should, be obtained from the patient 48-72 hours later and re-tested. , . (09:29 SDIS) Test, Urine (BHCG) Collection DT: MonMar 04, 2016 09:25, Test - Urine (BHCG) NEGATIVE , Range (NEGATIVE), Method of sensitivity- Indeterminant: results should be repeated, after 48 hours. Positive: results may be detected as early as 4-5 days before a first missed menses. Elimination of BHCG-, Elimination following first trimester D&C: 29-44 Days , Elimination following term : 8-24 Days , Specific Arpin 1.025 , Range (1.002-1.036), A dilute urine specimen may, not contain office machines sales representative levels of hCG. If is still, suspected, a first morning urine specimen OR a random blood specimen should, be obtained from the patient 48-72 hours later and re-tested. , . (09:30 [facility] Smith: LGIB=DANITA Arvizu, Consuelo MBRI=DO Jean Matthew SDIS=DANITA Gipson, Lakshmi WMEI=DO Awan William &a-1R&a+25V*p+0X*[id number]*c202B*c15G*c2P*p-0X&a-25V&a+1R Name: Domenica Velasco : 1985 F31 MedRec: [id number] AcctNum: [id number] Prepared: MonMar 04, 2016 09:59 by Interface Page 11 of 11 pMD MTDD
== END 2016-03-04 09:50 | disposition short-term general hospital (02) ==
LOC: BURERS 08:06
DX: K81.0 Acute cholecystitis (principal); F41.9 Anxiety disorder, unspecified; F32.9 Major depressive disorder, single episode, unspecified
CPT/HCPCS: 80053; 81003; 81015; 81025; 85025; 87086; 96365; 96375; 96376; J1885; J2405; J2543; J7050

== ENCOUNTER 2016-09-26 08:18 | Emergency (ER) | payer SELFPAY ==
[2016-09-26 08:47] LABS: Pregnancy Test - Urine (BHCG) Negative (Negative)
[2016-09-26 08:48] LABS: Bilirubin Negative (Negative); Blood, Urine Moderate (Negative); Clarity Hazy (Clear); Glucose, Urine (Dipstick) Negative (Negative); Leukocyte Small (Negative); Nitrite Positive (Negative); Protein, Urine (Dipstick) 100 mg/dL (Neg-Trace); Specific Gravity, Urine 1.025 (1.005-1.030)
[2016-09-26 08:48] LABS: Pregu Control Background? CLEAR/WHITE (CLR/WHITE); Pregu Control Bar Appear? YES (CONTROL BAR); Specific Gravity 1.025 (1.002-1.036)
[2016-09-26 08:49] LABS: Bacteria/HPF 3+ HPF (None Seen); Other Microscopic Description C&S SET UP; Transitional Epithelial 0-3 HPF (0-3)
[2016-09-26 08:57] LABS: Squamous Epithelial 0-3 HPF (0-3); WBC/HPF 21-50 HPF (0-3)
[2016-09-26] MEDS ORDERED: Ondansetron HCl/PF 4 MG/2 ML Vial ONE (08:59)
[2016-09-26] MEDS ORDERED: Ketorolac Tromethamine 30 MG/ML VIAL ONE (08:59)
[2016-09-26 09:05] LABS: ALT (SGPT) 22 U/L (8-55); AST (SGOT) 14 U/L (5-34); Alkaline Phosphatase 107 U/L (40-150); Anion Gap 15 mmol/L (10-20); BUN (Urea Nitrogen) 12 mg/dL (7.0-18.7); Bilirubin, Total 0.6 mg/dL (0.2-1.2); Calc. Creatinine Clearance 0 mL/min (70-130); Calcium 9.3 mg/dL (7.8-10.44); Carbon Dioxide 20 mmol/L (22-29); Chloride 107 mmol/L (98-107); Estimated GFR-MDRD 90; Globulin 3.7 g/dL (2.4-3.5); Glucose 129 mg/dL (70-105); Protein, Total 7.7 g/dL (6.0-8.3); Sodium 139 mmol/L (136-145)
[2016-09-26 09:07] LABS: Hemoglobin 13.2 g/dL (12.0-16.0); Lymphocytes 2 % (21-51); MDiff Complete? YES; Mean Corpuscular HGB CONC 34.7 g/dL (32.0-36.0); Mean Corpuscular Hemoglobin 32.5 pg (27.0-31.0); Mean Corpuscular Volume 93.7 fl (81.0-99.0); Mean Platelet Volume 6.7 fL (7.4-10.4); Monocytes 6 % (0-10); Neutrophil 92 % (42-75); Platelet Count 312 thou/uL (130-400); RBC Distribution Width 12.7 % (11.5-14.5); Red Blood Cell (RBC) Count 4.06 mill/uL (4.20-5.40); White Blood Cell (WBC) Count 20.6 thou/uL (4.8-10.8)
[2016-09-26] MEDS ORDERED: Sodium Chloride 0.9% 100 ML ONE (09:13)
[2016-09-26] MEDS ORDERED: cefTRIAXone\\ROCEPHIN 2 GM VIAL ONE (09:13)
== END 2016-09-26 09:53 | disposition home or self-care (01) ==
LOC: BURERS 08:18
DX: N12 Tubulo-interstitial nephritis, not specified as acute or chronic (principal); F41.9 Anxiety disorder, unspecified; F32.9 Major depressive disorder, single episode, unspecified
CPT/HCPCS: 36415; 80053; 81003; 81015; 81025; 85025; 87040; 87077; 87086; 87186; 96361; 96365; 96375; J0696; J1885; J2405; J7050

== ENCOUNTER 2017-07-07 16:33 | Emergency (ER) | payer SELFPAY ==
[2017-07-07 16:57] LABS: Clarity Cloudy (Clear); Glucose, Urine (Dipstick) Negative (Negative); Leukocyte Moderate (Negative); Nitrite Negative (Negative); Protein, Urine (Dipstick) Trace mg/dL (Neg-Trace); Specific Gravity, Urine 1.015 (1.005-1.030); pH, Urine 8.5 (5.0-9.0)
[2017-07-07 16:58] LABS: Bilirubin Negative (Negative); Blood, Urine Negative (Negative); Pregnancy Test - Urine (BHCG) Negative (Negative); Pregu Control Background? CLEAR/WHITE (CLR/WHITE); Pregu Control Bar Appear? YES (CONTROL BAR); Specific Gravity 1.015 (1.002-1.036); Urobilinogen 0.2 mg/dL (0.2-1.0)
[2017-07-07] MEDS ORDERED: Ketorolac Tromethamine 30 MG/ML VIAL ONE (17:02)
[2017-07-07 17:04] LABS: Bacteria/HPF 1+ HPF (None Seen); RBC/HPF 0-3 HPF (0-3); Renal Epithelial None Seen HPF (0-3); Transitional Epithelial NONE SEEN HPF (0-3); Trichomonas/HPF 1+ HPF (None Seen); WBC/HPF 0-3 HPF (0-3); Yeast-All Forms None Seen HPF (None Seen)
[2017-07-07 17:05] LABS: Crystals/HPF 2+ AMORPH PHOS HPF (Negative); Hyaline Casts/LPF NONE SEEN LPF (0-3 Hyaline); Other Casts/LPF None Seen LPF (0-3 Hyaline); Oval Fat Bodies/HPF None Seen HPF (None Seen); Sperm/HPF None Seen HPF (None Seen)
[2017-07-07] MEDS ORDERED: Ondansetron HCl/PF 4 MG/2 ML Vial ONE (17:05)
[2017-07-07 17:37] LABS: Eosinophils 3 % (0-10); Hemoglobin 11.8 g/dL (12.0-16.0); Hemoglobin C Crystals SLIGHT (None Seen); Lymphocytes 44 % (21-51); MDiff Complete? YES; Mean Corpuscular HGB CONC 34.7 g/dL (32.0-36.0); Mean Corpuscular Hemoglobin 30.9 pg (27.0-31.0); Mean Corpuscular Volume 89.1 fl (81.0-99.0); Mean Platelet Volume 6.4 fL (7.4-10.4); Monocytes 7 % (0-10); Neutrophil 46 % (42-75); Platelet Count 460 thou/uL (130-400); RBC Distribution Width 13.5 % (11.5-14.5); Red Blood Cell (RBC) Count 3.82 mill/uL (4.20-5.40); Small Platelets SLIGHT; White Blood Cell (WBC) Count 14.5 thou/uL (4.8-10.8)
[2017-07-07 17:39] LABS: ALT (SGPT) 16 U/L (8-55); AST (SGOT) 12 U/L (5-34); Albumin 4.1 g/dL (3.5-5.0); Alkaline Phosphatase 85 U/L (40-150); Anion Gap 18 mmol/L (10-20); BUN (Urea Nitrogen) 14 mg/dL (7.0-18.7); Bilirubin, Total Less than 0.2 mg/dL (0.2-1.2); Calc. Creatinine Clearance 0 mL/min (70-130); Carbon Dioxide 20 mmol/L (22-29); Chloride 108 mmol/L (98-107); Estimated GFR-MDRD 74; Glucose 158 mg/dL (70-105); Potassium 3.2 mmol/L (3.5-5.1); Protein, Total 7.1 g/dL (6.0-8.3); Sodium 143 mmol/L (136-145)
[2017-07-09 21:13] LABS: Chlamydia by PCR Not Detected (NotDetected); GC by PCR Not Detected (NotDetected)
== END 2017-07-07 18:24 | disposition home or self-care (01) ==
LOC: BURERS 16:33
DX: A59.01 Trichomonal vulvovaginitis (principal); R87.619 Unspecified abnormal cytological findings in specimens from cervix uteri; F17.200 Nicotine dependence, unspecified, uncomplicated
CPT/HCPCS: 80053; 81003; 81015; 81025; 85025; 87480; 87491; 87510; 87591; 87660; 96374; 96375; J1885; J2405

== ENCOUNTER 2018-07-21 07:33 | Emergency (ER) | payer SELFPAY ==
[2018-07-21] MEDS ORDERED: Ketorolac Tromethamine 30 MG/ML VIAL ONE (08:15)
[2018-07-21] MEDS ORDERED: Ondansetron PF 4 MG/2 ML Vial ONE (08:15)
[2018-07-21 08:17] LABS: Bilirubin Negative (Negative); Blood, Urine Small (Negative); Clarity Clear (Clear); Glucose, Urine (Dipstick) Negative (Negative); Leukocyte Small (Negative); Nitrite Negative (Negative); Protein, Urine (Dipstick) Trace mg/dL (Neg-Trace); Urobilinogen 0.2 mg/dL (0.2-1.0); pH, Urine 5.5 (5.0-9.0)
[2018-07-21 08:18] LABS: Bacteria/HPF Rare-Few HPF (None Seen); RBC/HPF 0-3 HPF (0-3); Squamous Epithelial 0-3 HPF (0-3); Trichomonas/HPF 1+ HPF (None Seen)
[2018-07-21 08:26] LABS: #Basophils 0.1 thou/uL (0.0-0.2); #Eosinphils 0.2 thou/uL (0.0-0.7); #Lymphocytes 2.1 thou/uL (1.20-3.40); #Monocytes 0.9 thou/uL (0.11-0.59); #Neutrophils 9.6 thou/uL (1.40-6.50); %Basophils 0.8 % (0.0-1.0); %Eosinophils 1.3 % (0.0-10.0); %Lymphocytes 16.2 % (21.0-51.0); %Monocytes 6.8 % (0.0-10.0); %Neutrophils 74.9 % (42.0-75.0); Hemoglobin 11.8 g/dL (12.0-16.0); Mean Corpuscular HGB CONC 31.5 g/dL (32.0-36.0); Mean Corpuscular Hemoglobin 29.5 pg (27.0-31.0); Mean Corpuscular Volume 93.8 fL (78.0-98.0); Mean Platelet Volume 6.4 fL (7.4-10.4); Platelet Count 413 thou/uL (130-400); RBC Distribution Width 14.5 % (11.5-14.5); Red Blood Cell (RBC) Count 3.99 mill/uL (4.20-5.40); White Blood Cell (WBC) Count 12.8 thou/uL (4.8-10.8)
[2018-07-21 08:42] LABS: ALT (SGPT) 25 U/L (8-55); AST (SGOT) 15 U/L (5-34); Albumin 4.2 g/dL (3.5-5.0); Alkaline Phosphatase 124 U/L (40-150); Anion Gap 14 mmol/L (10-20); BUN (Urea Nitrogen) 17 mg/dL (7.0-18.7); Bilirubin, Total 0.3 mg/dL (0.2-1.2); Calc. Creatinine Clearance 0 mL/min (70-130); Calcium 9.9 mg/dL (7.8-10.44); Carbon Dioxide 24 mmol/L (22-29); Chloride 108 mmol/L (98-107); Estimated GFR-MDRD 79; Globulin 3.2 g/dL (2.4-3.5); Glucose 131 mg/dL (70-105); Potassium 3.5 mmol/L (3.5-5.1); Protein, Total 7.4 g/dL (6.0-8.3); Sodium 142 mmol/L (136-145)
[2018-07-21] MEDS ORDERED: cefTRIAXone\\ROCEPHIN 1 GM VIAL ONE (09:08)
--- NOTE | 2018-07-21 10:02 | CT ---
CT ABDOMEN AND PELVIS NONCONTRAST: COMPARISON: Reference is made to 09/28/2009 exam. INDICATION: Right flank pain. FINDINGS: There is bilateral punctate nephrolithiasis, without obstructive uropathy. No ureterolithiasis or bl adder calculus identified. Tubal ligation clips are present within the pelvis bilaterally. Evidence of prior cholecystectomy. No consolidation or effusion at the imaged lung morton. No free air. The e valuation is otherwise limited on the basis of noncontrast technique. IMPRESSION: Punctate bilateral nonobstructing nephrolithiasis. POS: C
== END 2018-07-21 09:23 | disposition home or self-care (01) ==
LOC: BURERS 07:33
DX: N39.0 Urinary tract infection, site not specified (principal); J45.909 Unspecified asthma, uncomplicated; Z87.442 Personal history of urinary calculi
CPT/HCPCS: 36415; 74176; 80053; 81003; 81015; 85025; 87086; 96361; 96374; 96375; J0696; J1885; J2405

== ENCOUNTER 2018-12-29 22:56 | Emergency (ER) | payer SELFPAY ==
[2018-12-29 23:15] LABS: Bilirubin Negative (Negative); Blood, Urine Large (Negative); Clarity Cloudy (Clear); Glucose, Urine (Dipstick) Negative (Negative); Leukocyte Moderate (Negative); Nitrite Negative (Negative); Pregnancy Test - Urine (BHCG) Negative (Negative); Pregu Control Background? CLEAR/WHITE (CLR/WHITE); Pregu Control Bar Appear? YES (CONTROL BAR); Protein, Urine (Dipstick) 30 mg/dL (Neg-Trace); Specific Gravity 1.025 (1.002-1.036); Urobilinogen 0.2 mg/dL (Less than 2)
[2018-12-29 23:26] LABS: Bacteria/HPF 1+ HPF (None Seen); RBC/HPF 21-50 HPF (0-3); Trichomonas/HPF 1+ HPF (None Seen)
[2018-12-29 23:27] LABS: Mucous/LPF 1+ LPF (<2+)
[2018-12-29] MEDS ORDERED: Ketorolac Tromethamine 30 MG/ML VIAL ONE (23:36)
[2018-12-29] MEDS ORDERED: Ondansetron PF 4 MG/2 ML Vial ONE (23:36)
[2018-12-29 23:44] LABS: #Basophils 0.1 thou/uL (0.0-0.2); #Eosinphils 0.2 thou/uL (0.0-0.7); #Lymphocytes 4.3 thou/uL (1.20-3.40); #Monocytes 0.9 thou/uL (0.11-0.59); #Neutrophils 7.3 thou/uL (1.40-6.50); %Eosinophils 1.4 % (0.0-10.0); %Lymphocytes 33.6 % (21.0-51.0); Hemoglobin 10.6 g/dL (12.0-16.0); Mean Corpuscular HGB CONC 30.8 g/dL (32.0-36.0); Mean Corpuscular Hemoglobin 28.4 pg (27.0-31.0); Mean Corpuscular Volume 92.3 fL (78.0-98.0); Mean Platelet Volume 6.3 fL (7.4-10.4); Platelet Count 518 thou/uL (130-400); RBC Distribution Width 15.7 % (11.5-14.5); Red Blood Cell (RBC) Count 3.73 mill/uL (4.20-5.40); White Blood Cell (WBC) Count 12.8 thou/uL (4.8-10.8)
--- NOTE | 2018-12-29 23:55 | CT ---
EXAM: CT abdomen and pelvis without contrast PROVIDED CLINICAL HISTORY: Left flank pain COMPARISON: 07/21/2018 FINDINGS: Visualized lung bases are free of significant opacity. There is mild left hydronephrosis and left hydroureter to the level of a 3 mm distal left ureteral ca lculus. Several 1-2 mm nonobstructing right renal calculi are seen. No additional urinary tract calculi are evident. The solid abdominal organs are suboptimally evaluated in the absence of IV contrast material but demo nstrate an otherwise unremarkable unenhanced CT appearance. Changes of prior cholecystectomy are seen. There is no bowel dilatation, inflammatory fat stranding, free fluid or free air apparent. Bilateral tubal ligation clips are seen. The appendix appears normal. The osseous structures demonstrate no concerning lytic or blastic lesions. IMPRESSION: 1. 3 mm mildly obstructing distal left ureteral calculus. 2. Right nephrolithiasis.
[2018-12-29 23:57] LABS: ALT (SGPT) 18 U/L (8-55); AST (SGOT) 11 U/L (5-34); Albumin 4.1 g/dL (3.5-5.0); Alkaline Phosphatase 105 U/L (40-110); Anion Gap 16 mmol/L (10-20); BUN (Urea Nitrogen) 15 mg/dL (7.0-18.7); Bilirubin, Total 0.3 mg/dL (0.2-1.2); Calc. Creatinine Clearance 0 mL/min (70-130); Calcium 9.3 mg/dL (7.8-10.44); Carbon Dioxide 19 mmol/L (22-29); Chloride 107 mmol/L (98-107); Estimated GFR-MDRD 88; Globulin 3.3 g/dL (2.4-3.5); Glucose 132 mg/dL (70-105); Potassium 3.1 mmol/L (3.5-5.1); Protein, Total 7.4 g/dL (6.0-8.3); Sodium 139 mmol/L (136-145)
[2018-12-30] MEDS ORDERED: Potassium Chloride 20 MEQ TAB ONE (00:15)
== END 2018-12-30 00:21 | disposition home or self-care (01) ==
LOC: BURERS 22:56
DX: N13.2 Hydronephrosis with renal and ureteral calculous obstruction (principal); A59.01 Trichomonal vulvovaginitis; E87.6 Hypokalemia; J45.909 Unspecified asthma, uncomplicated; Z87.442 Personal history of urinary calculi
CPT/HCPCS: 74176; 80053; 81003; 81015; 81025; 85025; 87086; 96374; 96375; J1885; J2405

== ENCOUNTER 2022-07-04 11:23 | Emergency (ER) | payer SELFPAY ==
[2022-07-04] MEDS ORDERED: Ketorolac Tromethamine 30 MG/ML VIAL ONE (11:48)
[2022-07-04] MEDS ORDERED: Ondansetron PF 4 MG/2 ML Vial ONE (11:48)
[2022-07-04 11:49] LABS: #Basophils 0.1 thou/uL (0.0-0.2); #Eosinphils 0.2 thou/uL (0.0-0.7); #Lymphocytes 3.1 thou/uL (1.20-3.40); #Monocytes 0.6 thou/uL (0.11-0.59); #Neutrophils 7.1 thou/uL (1.40-6.50); %Basophils 0.8 % (0.0-1.0); %Eosinophils 1.5 % (0.0-10.0); %Monocytes 5.7 % (0.0-10.0); %Neutrophils 63.9 % (42.0-75.0); Hemoglobin 10.7 g/dL (12.0-16.0); Mean Corpuscular HGB CONC 30.8 g/dL (32.0-36.0); Mean Corpuscular Hemoglobin 27.3 pg (27.0-31.0); Mean Corpuscular Volume 88.7 fl (78.0-98.0); Mean Platelet Volume 6.1 fL (7.4-10.4); Platelet Count 620 10x3/uL (130-400); Red Blood Cell (RBC) Count 3.92 mill/uL (4.20-5.40); White Blood Cell (WBC) Count 11.1 10x3/uL (4.8-10.8)
[2022-07-04 12:05] LABS: Bilirubin Negative (Negative); Blood, Urine Moderate (Negative); Clarity Slightly Cloudy (Clear); Glucose, Urine (Dipstick) 500 mg/dL (Negative); Ketone, Urine Trace mg/dL (Negative); Leukocyte Small (Negative); Nitrite Negative (Negative); Protein, Urine (Dipstick) 30 mg/dL (Neg-Trace); Specific Gravity, Urine 1.025 (1.005-1.030); Urobilinogen 0.2 mg/dL (Less than 2)
[2022-07-04 12:07] LABS: Pregnancy Test - Urine (BHCG) Negative (Negative)
[2022-07-04 12:08] LABS: Pregu Control Background? CLEAR/WHITE (CLR/WHITE); Pregu Control Bar Appear? YES (CONTROL BAR); Specific Gravity 1.025 (1.002-1.036)
[2022-07-04 12:08] LABS: ALT (SGPT) 24 U/L (8-55); AST (SGOT) 13 U/L (5-34); Albumin 4.1 g/dL (3.5-5.0); Alkaline Phosphatase 94 U/L (40-110); Anion Gap 13 mmol/L (10-20); BUN (Urea Nitrogen) 17 mg/dL (7.0-18.7); Bilirubin, Total 0.4 mg/dL (0.2-1.2); Calc. Creatinine Clearance 0 mL/min (70-130); Calcium 8.9 mg/dL (7.8-10.44); Carbon Dioxide 18 mmol/L (22-29); Chloride 110 mmol/L (98-107); Estimated GFR 89; Globulin 3.5 g/dL (2.4-3.5); Glucose 241 mg/dL (70-105); Lipase 22 U/L (8-78); Magnesium 2.3 mg/dL (1.6-2.6); Potassium 3.7 mmol/L (3.5-5.1); Protein, Total 7.6 g/dL (6.0-8.3); Sodium 137 mmol/L (136-145)
[2022-07-04 12:14] LABS: Trichomonas/HPF 1+ HPF (None Seen)
[2022-07-04 12:16] LABS: Bacteria/HPF 4+ HPF (None Seen)
[2022-07-04] MEDS ORDERED: cefTRIAXone (ROCEPHIN) 1 GM VIAL ONE (12:20)
[2022-07-04] MEDS ORDERED: Sodium Chloride 0.9% 100 ML ONE (12:20)
[2022-07-04] MEDS ORDERED: metroNIDAZOLE 500 MG/100 ML BAG ONE (12:41)
== END 2022-07-04 15:38 | disposition home or self-care (01) ==
LOC: BURERS 11:23
DX: N39.0 Urinary tract infection, site not specified (principal); A59.9 Trichomoniasis, unspecified
CPT/HCPCS: 74176; 80053; 81003; 81015; 81025; 83605; 83690; 83735; 85025; 96361; 96365; 96368; 96375; J0696; J1885; J2405; J3490

== ENCOUNTER 2023-12-15 12:36 | Emergency (ER) | payer OTHER ==
[2023-12-15] MEDS ORDERED: HYDROcodone/Acetaminophen 5/325 mg Tablet ONE (13:50)
== END 2023-12-15 13:57 | disposition home or self-care (01) ==
LOC: BURERS 12:36
DX: S30.0XXA Contusion of lower back and pelvis, initial encounter (principal); W19.XXXA Unspecified fall, initial encounter
CPT/HCPCS: 72220; 99283